=== PATIENT | female | born 1990 | race Two or more races ===

== ENCOUNTER 2016-03-17 12:36 | Emergency (ER) | payer OTHER ==
[2016-03-17 13:38] LABS: HCG,QUALITATIVE URINE NEGATIVE
[2016-03-17 13:39] LABS: URINE BILIRUBIN NEGATIVE (NEGATIVE); URINE BLOOD NEGATIVE (NEGATIVE); URINE GLUCOSE (UA) NEGATIVE (NEGATIVE); URINE LEUKOCYTE ESTERASE NEGATIVE (NEGATIVE); URINE NITRITE NEGATIVE (NEGATIVE); URINE PROTEIN NEGATIVE (NEGATIVE); URINE UROBILINOGEN NORMAL (0-1 mg/dl)
[2016-03-17 13:42] LABS: URINE APPEARANCE CLEAR; URINE COLOR YELLOW
[2016-03-17] MEDS ORDERED: DIAZEPAM 5 MG/ML SYRINGE 2 ML ONE (14:17)
[2016-03-17] MEDS ORDERED: ACETAMINOPHEN 325 MG TABLET ONE ×2 (14:17→14:23)
[2016-03-17] MEDS ORDERED: PROCHLORPERAZINE 5 MG/ML 2 ML VIAL ONE (14:17)
[2016-03-17] MEDS ORDERED: MECLIZINE HCL 25 MG TABLET ONE (14:17)
== END 2016-03-17 14:38 | disposition home or self-care (01) ==
LOC: ED 12:36
DX: H81.10 Benign paroxysmal vertigo, unspecified ear (principal); R51 Headache
CPT/HCPCS: 81025; 81003; 99283 ×2; 96372 ×2; A9270 ×3; J0780; J3360